=== PATIENT | male | born 1935 | race Caucasian/White ===

== ENCOUNTER 2017-09-07 08:30 | Day surgery (SDC) | payer MEDICARE, OTHER, SELFPAY ==
--- NOTE | 2017-09-07 | PATH_ITS ---
[facility] Accession Number: [id number] . 01 Material submitted: . PART A: TRANSVERSE COLON POLYP PART B: ILEOCECAL VALVE PART C: ASCENDING COLON POLYPS PART D: COLON POLYP AT 50CM . 02 Diagnosis: A. Transverse Colon, Polyp, Biopsy: Tubular adenoma. . B. Ileocecal Valve, Biopsy: Colonic mucosa with a small benign lymphoid aggregate. No other diagnostic abnormality. Negative for active, chronic and microscopic colitis. Negative for dysplasia and malignancy. . C. Ascending Colon, Polyps, Biopsy: Tubular adenoma. Benign lymphoid aggregate. . D. Colon, Polyp at 50 cm, Biopsy: Tubulovillous adenoma. No evidence of malignancy or high-grade dysplasia. [facility]/09/10/2017 . 02 Electronically signed: . Carolina Buchanan MD, Pathologist NPI- [id number] . 01 Gross description: . Four specimens are received in formalin, labeled Clarke Barrera: . A. Labeled transverse colon polyp and consists of three frank tissue fragments, 0.3-0.4 cm. The specimen is submitted entirely in cassette A1. B. Labeled ileocecal valve biopsy and consists of two irregular frank tissue fragments, 0.3 cm and 0.4 cm in greatest dimension. The specimen is submitted entirely in cassette B1. C. Labeled polyp ascending colon and consists of one irregular frank tissue fragment, 0.4 x 0.2 x 0.1 cm, and one frank polypoid tissue, 0.5 x 0.4 x 0.2 cm. The polyp is bisected, and the specimen is submitted entirely in cassette C1. D. Labeled colon polyp at 50 cm and consists of multiple frank tissue fragments admixed with vegetative material, 1.0 x 0.5 x 0.1 cm in aggregate, submitted with a frank polypoid tissue, 0.7 x 0.5 x 0.3 cm. The polyp is trisected, and the specimen in submitted entirely in cassette D1. (FLETCHER:[id number]) /FRR . 02 Pathologist provided ICD-10: D12.3, D12.2, D12.6 . 02 CPT . 064461, [id number], [id number], [id number] Performed at: 01 [facility] [address] [id number] MD Camilo Penaloza MD Phone: [phone] Performed at: [facility] [address] [place] [id number] MD Abraham Topete MD Phone: [phone]
[2017-09-07 08:59] VITALS: BP 139/84; PULSE 95; RESP 20; TEMP 36.2; O2SAT 96
[2017-09-07 09:01] VITALS: BMI 29.8
--- NOTE | 2017-09-07 10:39 | PM.HP.1 ---
History of Present Illness Date Patient Seen: 09/07/17 Time Patient Seen: 10:40 Chief complaint: colonoscopy [id number] Narrative: Patient is a gentleman with a family history of colon cancer and a personal history of a polyp who last had a colonoscopy about 5 years ago. He would like to have it repeated. Patient History Medical History BPH (benign prostatic hyperplasia) (Chronic) Essential hypertension (Chronic) Umbilical hernia (Chronic) Surgical History History of hemorrhoidectomy (Resolved) History of laparoscopic cholecystectomy (Resolved) Status post right partial knee replacement (Resolved) Family & Social History Social History: household members none Meds Home Medications Medication Instructions Recorded Confirmed Type losartan 100 mg PO QDAY #0 11/22/15 History [TESTOSTERONE] QWEEKWE #0 02/22/17 History aspirin 325 mg PO QDAY #0 02/22/17 History hydrochlorothiazide 12.5 mg PO QDAY #0 02/22/17 History psyllium husk (with sugar) 3.4 gm PO QPM #0 02/22/17 History [Metamucil (with sugar)] zolpidem [Ambien] 10 mg PO HSP PRN #1 02/23/17 History ciprofloxacin HCl [Cipro] 500 mg PO BID #20 tab 02/24/17 Rx colchicine 0.6 mg PO Q1HP PRN #20 tab 02/24/17 Rx finasteride 5 mg PO DAILY 09/07/17 09/07/17 History glucosamine sulfate [Glucosamine] 500 mg PO BID 09/07/17 09/07/17 History tamsulosin 09/07/17 History tamsulosin 09/07/17 History Allergies Allergy/AdvReac Type Severity Reaction Status Date / Time shellfish derived Allergy Severe TONGUE Unverified 06/13/17 11:47 SWELLING - CRAB Review of Systems Review of Systems All systems reviewed & are unremarkable except as noted in HPI and below Exam Vital Signs (past 8 hours): - 09/07/17 08:59 Temperature 97.2 F L Pulse Rate 95 H Respiratory Rate 20 Blood Pressure 139/84 H Pulse Oximetry 96 Oxygen Delivery Method Room Air Narrative Exam Narrative: Operative obese gentleman no apparent distress. His eyes are nonicteric. Lungs are clear to auscultation without rales or rhonchi heart regular rate and rhythm without murmur gallop. He does have a little ectopy. Um abdomen is protuberant soft he has a reducible incisional hernia at the umbilicus. Not tender. He is alert and oriented x3. Assessment & Plan (1) Family history of colon cancer: Current visit: Yes Status: Chronic Plan: Assessment/Plan Narrative: Plan colonoscopy. I have discussed the procedure and the rationale with the patient including risks of bleeding, perforation which would necessitate a major operation, failure to find remove all lesions and the potential to tattoo. They appeared to understand and wished to proceed.
--- NOTE | 2017-09-07 11:00 | PM.PREOP ---
Pre-operative Note Interval Note Pre-op Check: History & Physical exam performed today H&P completed within 30 days and has changed as indicated here:: None ASA Class (for procedural sedation): II
--- NOTE | 2017-09-07 11:06 | SUR.OPER ---
to endo from opd via cart respirations unlabored iv patent positioned per self for procedure
--- NOTE | 2017-09-07 11:59 | SUR.OPER ---
tolerated procedure well
[2017-09-07 12:05] VITALS: BP 126/84; PULSE 86; RESP 20; TEMP 37; O2SAT 16
[2017-09-07] MEDS: MIDAZOLAM 5 MG/5 ML VIAL 7 MG IV (12:06)
[2017-09-07] MEDS: fentaNYL 250 MCG/5 ML INJ 350 MCG IV (12:06)
[2017-09-07 12:10] VITALS: BP 139/91; PULSE 88; RESP 19; O2SAT 97
--- NOTE | 2017-09-07 12:12 | P.OP.ENDO_ITS ---
Operative Date/Time/Diagnoses Date of procedure: 09/07/17 Time of procedure: 12:05 Pre-op diagnosis: History of polyps. Family history of colon cancer in his father. Last exam about 5 years ago. Post-op diagnosis: same (Multiple polyps. Santiago colonic diverticulosis quite extensive. Huge prostate. Prep adequate with irrigation.) Procedure & Clinicians Study performed: Colonoscopy with hot snare and cold biopsy Same procedure as scheduled: Yes Indications: Patient with a family history colon cancer. Surgeon: Rosendo Stone Procedure Notes SCOAP/Timeout: Performed Procedure in detail: The patient was placed in the left lateral decubitus position and underwent IV sedation directed by the surgeon consisting of fentanyl and Versed. Digital exam was remarkable for a huge prostate. The scope was inserted and advanced through the rectum into the sigmoid, descending , transverse, and ascending colon. The patient had very extensive diverticulosis throughout his colon. In the transverse colon I removed a polyp with the snare.. The cecum was reached identified by the ileocecal valve. I did not see the area of the appendix well. The ileocecal valve was noted to have an irregularity on the portion facing the ascending colon. I took biopsies of this to determine its nature. In the ascending colon just beyond were 2 polyps which were removed with hot snare. The scope was gradually brought out. Polyps were found at 50 cm from the anal verge an additional polyp found in the transverse colon near the initial biopsy. This was snared. The largest polyp was actually at the 50 cm anjali and it was hot snared. The scope ultimately was retroflexed in the rectum. The appearance was[fairly normal with some mild hemorrhoidal disease]. The scope was removed and the patient tolerated the procedure well Scope withdrawal time: 25 min includes removal 5polyp Sedation minutes: 48 Findings: diverticulosis (Santiago colonic) and polyp (Six polyps snared or biopsied and 1 lesion on the ileocecal valve biopsied) Specimen(s): other (Polyps/ileocecal valve lesion.) Complications: none Recommendations: Colonscopy in 5 years (Unless has severe medical issues) Plan for aftercare: Will send a letter regarding the pathology Follow up: as needed Disposition: PACU
[2017-09-07 12:16] VITALS: BP 134/92; PULSE 92; RESP 21; O2SAT 96
[2017-09-07 12:26] VITALS: BP 146/97; PULSE 83; RESP 16; TEMP 37; O2SAT 95
[2017-09-07 13:32] VITALS: BP 126/79; PULSE 90; RESP 16; TEMP 36.9; O2SAT 94
== END 2017-09-07 13:34 | disposition home or self-care (01) ==
PROVIDERS: PCP Student in an Organized Health Care Education/Training Program; Visit Provider Specialist
PROC: 0DJD8ZZ Inspection of Lower Intestinal Tract, Via Natural or Artificial Opening Endoscopic (ICD-10-PCS; CPT 45378; principal; 2017-09-07 09:45)
DX: Z80.0 Family history of malignant neoplasm of digestive organs (principal); K57.30 Diverticulosis of large intestine without perforation or abscess without bleeding; N40.0 Benign prostatic hyperplasia without lower urinary tract symptoms; I10 Essential (primary) hypertension; E66.9 Obesity, unspecified; D12.3 Benign neoplasm of transverse colon; D12.2 Benign neoplasm of ascending colon; D12.6 Benign neoplasm of colon, unspecified
CPT/HCPCS: 45385; 45380; 88305; 99152; 99153; J2250; J3010

== ENCOUNTER 2017-10-20 13:58 | Emergency (ER) | payer MEDICARE, OTHER, SELFPAY ==
[2017-10-20 14:03] VITALS: BP 167/101; PULSE 92; RESP 20; TEMP 36.3; O2SAT 95; BMI 31.1
--- NOTE | 2017-10-20 15:47 | ED_ITS ---
HPI - Extremity Problem <Joy Montoya PA-C - Last Filed: 10/20/17 21:38> General Chief complaint: Extremity Injury, Upper Stated complaint: left foot gout ? Time Seen by Provider: 10/20/17 15:37 Source: patient Mode of arrival: ambulatory Limitations: no limitations History of Present Illness HPI Narrative: This 82-year-old gentleman comes in today due to what he believes is a recurrent gout attack. He started having pain, redness, and swelling in the left ankle a day and half ago without any trauma. Painful to bear weight or put pressure on the joint. He denies any open wounds, insect bites, or new fever. He denies any pain in other joints or the calf and states this feels similar to his previous gout attacks. He notes that prednisone worked well for him last time this flared. Related Data Home Medications Medication Instructions Recorded Confirmed losartan 100 mg PO QDAY #0 11/22/15 [TESTOSTERONE] QWEEKWE #0 02/22/17 aspirin 325 mg PO QDAY #0 02/22/17 hydrochlorothiazide 12.5 mg PO QDAY #0 02/22/17 psyllium husk (with sugar) 3.4 gm PO QPM #0 02/22/17 [Metamucil (with sugar)] zolpidem [Ambien] 10 mg PO HSP PRN #1 02/23/17 finasteride 5 mg PO DAILY 09/07/17 09/07/17 glucosamine sulfate [Glucosamine] 500 mg PO BID 09/07/17 09/07/17 tamsulosin 09/07/17 tamsulosin 09/07/17 Previous Rx's Medication Instructions Recorded colchicine 0.6 mg PO Q1HP PRN #20 tab 02/24/17 prednisone 20 mg PO DAILY #5 tab 10/20/17 Allergies Allergy/AdvReac Type Severity Reaction Status Date / Time shellfish derived Allergy Severe TONGUE Verified 10/08/17 12:17 SWELLING - CRAB Review of Systems <Joy Montoya PA-C - Last Filed: 10/20/17 21:38> Review of Systems All systems reviewed & are unremarkable except as noted in HPI and below Exam <Joy Montoya PA-C - Last Filed: 10/20/17 21:38> Narrative Exam Narrative: GENERAL APPEARANCE: Patient sitting comfortably, in no distress. LUNGS: Clear to auscultation bilaterally. HEART: Rate and rhythm regular without murmur, normal S1 and S2, no S3 or S4. DERMATOLOGIC: No exanthem or open wounds MS: L. medial ankle mild effusion, tender to palpation, slightly warm to touch. Normal AROM non weightbearing. No TTP over the toes or metatarsals. EXTREMITIES: No cyanosis, no calf tenderness, trace pedal edema on the left, none on the right Initial Vital Signs Initial Vital Signs: Vital Signs Temperature 97.4 F L 10/20/17 14:03 Pulse Rate 92 H 10/20/17 14:03 Respiratory Rate 20 10/20/17 14:03 Blood Pressure 167/101 H 10/20/17 14:03 Pulse Oximetry 95 10/20/17 14:03 <Migel Walker MD - Last Filed: 10/21/17 07:42> Initial Vital Signs Initial Vital Signs: Vital Signs Temperature 97.4 F L 10/20/17 14:03 Pulse Rate 92 H 10/20/17 14:03 Respiratory Rate 20 10/20/17 14:03 Blood Pressure 167/101 H 10/20/17 14:03 Pulse Oximetry 95 10/20/17 14:03 Course <Joy Montoya PA-C - Last Filed: 10/20/17 21:38> Vital Signs - 8 hr 10/20/17 14:03 10/20/17 16:02 Temperature 97.4 F L Pulse Rate 92 H 88 Respiratory Rate 20 17 Blood Pressure 167/101 H Blood Pressure [Right Arm] 168/98 H Pulse Oximetry 95 99 <Migel Walker MD - Last Filed: 10/21/17 07:42> Vital Signs - 8 hr 10/20/17 14:03 10/20/17 16:02 Temperature 97.4 F L Pulse Rate 92 H 88 Respiratory Rate 20 17 Blood Pressure 167/101 H Blood Pressure [Right Arm] 168/98 H Pulse Oximetry 95 99 Discharge Plan Departure Patient Disposition: Home Clinical Impression: Gout Discharge Date/Time: 10/20/17 16:10 Interventions: ED Discharge Assessment Last Done: 10/20/17 16:10 Instructions: DI for Gout Activity Restrictions/Additional Instructions: Return if you have acutely worsening symptoms, or new symptoms such as fever, increased pain or swelling. Otherwise, take the prednisone as you have in the past, (I have sent this prescription to [facility] for you) and please follow-up with your PCP to see whether to make any medication adjustments to help prevent attacks. Prescriptions: New prednisone 20 mg tablet 20 mg PO DAILY Qty: 5 RF: 0 No Action losartan 100 MG tablet 100 mg PO QDAY Qty: 0 RF: 0 hydrochlorothiazide 12.5 MG tablet 12.5 mg PO QDAY Qty: 0 RF: 0 aspirin 325 MG tablet 325 mg PO QDAY Qty: 0 RF: 0 psyllium husk (with sugar) [Metamucil (with sugar)] 3.4 GM powder in packet 3.4 gm PO QPM Qty: 0 RF: 0 [TESTOSTERONE] QWEEKWE Qty: 0 RF: 0 zolpidem [Ambien] 10 MG tablet 10 mg PO HSP PRNQty: 1 RF: 0 colchicine 0.6 MG tablet 0.6 mg PO Q1HP PRNQty: 20 RF: 0 glucosamine sulfate [Glucosamine] 500 mg Tablet 500 mg PO BID RF: 0 tamsulosin 0.4 mg Capsule,Extended Release 24hr RF: 0 finasteride 5 mg Tablet 5 mg PO DAILY RF: 0 tamsulosin RF: 0 Referrals: Kristian Champagne MD [Primary Care Provider] - <Migel Walker MD - Last Filed: 10/21/17 07:42> Sign Out Provider Sign Out Attestation: The PA/ROCK LOADER functioned independently for the care of this pt, I was available, but not asked to participate in care. I am unable to determine appropriateness of management without personally examining the pt.
[2017-10-20 16:02] VITALS: BP 168/98; PULSE 88; RESP 17; O2SAT 99
--- NOTE | 2017-10-20 16:09 | PC.NURSE ---
Pts l foot red and sweeling from gout. HX of same
== END 2017-10-20 16:10 | disposition home or self-care (01) ==
PROVIDERS: Emergency Provider Internal Medicine; PCP Student in an Organized Health Care Education/Training Program
DX: M10.9 Gout, unspecified (principal)
CPT/HCPCS: 99282

== ENCOUNTER → 2018-03-15 09:16 | Outpatient (CLI) | payer MEDICARE, OTHER, SELFPAY ==
--- NOTE | 2018-03-15 09:18 | DI.RAD.S_ITS ---
PROCEDURE: XR FOOT LT MIN 3V INDICATIONS: Pain in 1st-3rd digit TECHNIQUE: 3 views of the foot were acquired. COMPARISON: None. FINDINGS: Bones: No fractures or dislocations. No suspicious bony lesions. Prominent degenerative changes are noted involving the 1st metatarsophalangeal joint. There is a small plantar calcaneal spur. Mild deformity involving the mid to distal 3rd metatarsal shaft probably is related to previous injury. Soft tissues: No tibiotalar joint effusion. There may be mild soft tissue edema about the dorsal aspect of the foot. The Achilles tendon appears to be thickened. No radiopaque foreign bodies are evident. IMPRESSION: 1. No acute fracture of the left foot. 2. 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 3. Thickening of the Achilles tendon may represent tendinopathy. Please correlate clinically. Dictated by: Tim Moreno M.D. on 03/15/2018 at 8:45 Approved by: Tim Moreno M.D. on 03/15/2018 at 8:52
== END ==
PROVIDERS: PCP Student in an Organized Health Care Education/Training Program; Visit Provider Physician Assistant
DX: M79.672 Pain in left foot (principal); M19.072 Primary osteoarthritis, left ankle and foot
CPT/HCPCS: 73630